=== PATIENT | female | born 1960 | race African-American/Black ===

== ENCOUNTER → 2017-01-01 | Day surgery (SDC) | payer OTHER ==
[~2017-01-01] MED LIST: ACETAMINOPHEN 1000 MG/100 ML VIAL IV ONE; BUPIVACAINE/EPINEPHRINE 0.5% PF 10 ML VIAL ONE; HALOPERIDOL LACTATE 5 MG/ML AMP IV ONE; KETOROLAC TROMETHAMINE 30 MG/ML (IVP) VIAL IV PUSH ONE; LACTATED RINGER'S 1000 ML INJ 1,000 ML ONE; MIDAZOLAM HCL 2 MG/2 ML VIAL ONE; NAPR500 PO; NEOSTIGMINE 3 MG/3 ML SYR IV ONE; ONDANSETRON HCL 4 MG/2 ML VIAL IV PUSH ONE; PROPOFOL 200 MG/20 ML AMP IV ONE; ceFAZolin INJ 1,000 MG VIAL ONE; metroNIDAZOLE 500 MG INJ 100 ML IV ONE
--- NOTE | 2017-01-01 14:02 | TN ---
cc: MUNA ROPER M.D. DATE OF SURGERY: 01/01/2017 PREOPERATIVE DIAGNOSIS Cholelithiasis, cholecystitis. POSTOPERATIVE DIAGNOSIS Cholelithiasis, cholecystitis. PROCEDURE Laparoscopic cholecystectomy. ANESTHESIA General. SURGEON Dr. Roper. INDICATIONS This is a pleasant 56-year-old female who was found to have biliary colic type symptoms and plans were made for above. FINDINGS Intraoperative we found that she had some minor flimsy adhesions down the right lower quadrant that were taken down as well after the cholecystectomy. PROCEDURE The patient was taken to the operating room and placed in the supine position. After anesthesia her abdomen is prepped with Betadine. Time-out was done. She had been given preoperative antibiotics. We make an incision just below the umbilicus. Veress needle was inserted. The saline load test was performed. The abdomen was insufflated to 15 mmHg. 10 mm trocar was introduced. Camera was introduced. Two other working ports were placed 5 mm below the xyphoid, 5 mm in between the two previously placed ports. The gallbladder can be seen, it is obviously contracted and chronically scarred in. We dissect along the angle of Calot, identify the cystic duct, cystic artery is nonexistent. We are able to place two hemoclips along the distal end of the cystic duct, one proximally and transect. The gallbladder is then teased off the gallbladder bed without much difficulty, placed in EndoCatch and pulled out through the umbilical incision which must be elongated slightly because of the size of the gallbladder. We check our dissection site and there is excellent hemostasis without biliary leakage. The liver is smooth. The peritoneal surfaces are smooth. We then track down the right lower quadrant in the abdomen, she has some flimsy adhesion in the right lower quadrant. These were taken down with sharp dissection using electrocautery scissors. After this was done no other gross abnormality seen. She does have some small bowel stuck down the pelvis, this is left alone. We then irrigate, irrigating solution is removed. The trocars are removed. The fascia layer is closed with 0 Vicryl at the umbilicus. Skin is closed with 4-0 Vicryl. Steri-Strips were applied. Sterile bandage was applied. The patient tolerated the procedure well and had no immediate postop complications. Muna Roper MD [id number]/TLL /1:38 PM /1:50 PM
== END | disposition home or self-care (01) ==
LOC: ESDC 10:51
PROVIDERS: ATTEND Surgery
DX: K80.10 Calculus of gallbladder with chronic cholecystitis without obstruction (principal)
CPT/HCPCS: 00790; 47562; 88304; J0131; J0690; J1630; J1885; J2250; J2405; J2710; J3010; J7120